=== PATIENT | male | born 1990 | race Caucasian/White ===

== ENCOUNTER 2021-04-16 14:53 | Emergency (ER) | payer OTHER, SELFPAY ==
[2021-04-16 15:04] VITALS: BP 132/77; PULSE 77; RESP 16; TEMP 36.9; O2SAT 99
--- NOTE | 2021-04-16 15:07 | ED.URI ---
HPI - URI/Sore Throat General Chief Complaint: Upper Respiratory Infection Stated Complaint: sore throat Time Seen by Provider: 04/16/21 15:30 Source: patient and RN notes reviewed Mode of arrival: ambulatory Limitations: no limitations History of Present Illness MD elicited complaint: sore throat Related Data Allergies Allergy/AdvReac Type Severity Reaction Status Date / Time No Known Allergies Allergy Mild Verified 03/16/10 14:28 Review of Systems Review of Systems: CONSTITUTIONAL: Denies malaise, chills, sweats, or fever. EYES: Denies visual changes, redness, or discharge. ENT: Denies rhinorrhea, congestion, sinus pain, otalgia. Reports sore throat. CARDIOVASCULAR: Denies chest pain, palpitations, or edema. RESPIRATORY: Denies cough or dyspnea. GASTROINTESTINAL: Denies abdominal pain, vomiting, diarrhea. Reports nausea SKIN: Denies rash or itching. MUSCULOSKELETAL: Denies myalgia. NEUROLOGIC: Reports headache. All systems reviewed & are unremarkable except as noted in HPI and below PMFSH Comments At time of signature, agree with nursing past medical, surgical, social and family history. There is no relevant family history pertinent to the presenting complaint Exam Narrative: GENERAL: Well-appearing, well-nourished, and in no acute distress. HEAD: Normocephalic EYES: PERRLA, conjunctivae clear ENT: Nares clear, no discharge. Mucous membranes moist. TM pearly mehta with sharp light reflex bilaterally; no tragal tenderness. Oropharynx erythematous without lesions. Tonsils enlarged copious exudate, no drooling, no hoarseness, no trismus, uvula midline. NECK: Supple. No lymphadenopathy CHEST: Clear to auscultation, breath sounds equal. No wheezing, rhonchi, rales, or stridor. No respiratory distress, speaks in full sentences. HEART: Regular rate and rhythm. No murmur heard. SKIN: Warm, dry, no rash. NEURO: Alert and oriented x3. PSYCH: Normal mood and affect Course Course Emergency Course: Patient is aware of diagnosis, understands and agrees to treatment plan. Anticipatory guidance given. Patient agrees to follow-up as directed and is aware of reasons to seek care at the emergency department. Portions of this record may have been created with voice recognition software Vital Signs Vital signs: Vital Signs Temperature 98.4 F 04/16/21 15:04 Pulse Rate 77 10/23/21 15:04 Respiratory Rate 16 04/16/21 15:04 Blood Pressure 132/77 04/16/21 15:04 Pulse Oximetry 99 04/16/21 15:04 Temperature 98.4 F 04/16/21 15:04 Pulse Rate 77 04/16/21 15:04 Respiratory Rate 16 04/16/21 15:04 Blood Pressure 132/77 04/16/21 15:04 Pulse Oximetry 99 04/16/21 15:04 Reviewed. MDM - URI/Sore Throat MDM Narrative Medical decision making narrative: Differential diagnosis considered: Jackson virus, strep pharyngitis, allergic rhinitis, upper respiratory tract infection, sinusitis, rhinosinusitis, nasopharyngitis. viral pharyngitis, otitis media, otitis externa, pneumonia, bronchitis, viral cough syndrome, viral syndrome, and influenza. Exam findings show no acute concerns or changes; patient is non-toxic appearing and is in no distress. Patient is appropriate for outpatient treatment and follow-up. Lab Data Attestation: I reviewed the patient's lab results. Critical Care Time Critical Care Time Critical Care Time: No Discharge Plan Discharge Clinical Impression: Acute tonsillitis Qualifiers: Pharyngitis/tonsillitis etiology: unspecified etiology Qualified Code(s): J03.90 - Acute tonsillitis, unspecified Patient Disposition: Home, Self-Care Condition: Stable Instructions: Antibiotic Form, Tonsillitis (ED) Additional Instructions: -Take the medication as prescribed. Throw away the toothbrush after 24hours of antibiotic. -Eat and drink things that are easy to swallow, like tea or soup, or popsicles to suck on. -Oral rinses such as: Salt water gargles and/or may use topical anesthetic (eg. Chloras
== END 2021-04-16 15:40 | disposition home or self-care (01) ==
PROVIDERS: Emergency Provider Nurse Practitioner
DX: J03.90 Acute tonsillitis, unspecified (principal)
CPT/HCPCS: 87081; 87880; 99213; G0463

== ENCOUNTER 2021-10-25 15:16 | Emergency (ER) | payer OTHER, SELFPAY ==
[2021-10-25] VITALS (9 sets, daily range): BP systolic 156–178; BP diastolic 75–102; PULSE 89–118; RESP 15–28; TEMP 36.2; O2SAT 99–100
--- NOTE | ~2021-10-25 | XR_ITS ---
EXAMINATION: XR chest 2V DATE: 10/25/2021 16:12 INDICATION: Chest pain. Near syncope. TECHNIQUE: Frontal and lateral views of the chest were obtained. COMPARISON: None. FINDINGS: There is no pneumonia, pleural effusion, or pneumothorax. The heart size is normal. IMPRESSION: 1. No acute cardiopulmonary disease. Reviewed, dictated and finalized at location B.
--- NOTE | 2021-10-25 15:16 | ECG_ITS ---
Measurements Intervals [place] Rate: 112 P: 59 KS: 132 QRS: 33 QRSD: 82 T: 17 QT: 308 QTc: 422 Interpretive Statements SINUS TACHYCARDIA BASELINE ARTIFACT- II, III ABNORMAL ECG Electronically Signed On 10-25-2021 15:33:40 CDT by Joseph Anderson D.O.
[2021-10-25 15:49] LABS: Basophils Absolute Auto 0.1 K/mm3 (0.0-0.1); Basophils Percent Auto 0.6 % (0.2-1.2); Eosinophils Percent Auto 0.1 % (0-4.4); Hematocrit 41.1 % (42.0-52.0); Hemoglobin 13.9 g/dL (14.0-18.0); Immature Granulocyte Absolute 0.04 K/mm3 (0.00-0.031); Immature Granulocyte Percent A 0.4 % (0-0.5); Lymphocytes Absolute Auto 0.83 K/mm3 (0.9-3.2); Lymphocytes Percent Auto 7.8 % (18.3-44.2); Mean Corpuscular HGB Conc 33.8 g/dl (32-36); Mean Corpuscular Hemoglobin 32.9 pg (26-34); Mean Corpuscular Volume 97.2 fl (80-100); Monocytes Absolute Auto 0.7 K/mm3 (0.1-0.6); Monocytes Percent Auto 6.6 % (2.6-8.5); Neutrophils Percent Auto 84.5 % (45.5-73.1); Platelet Count Result 318 k/mm3 (150-375); Red Blood Count 4.23 M/mm3 (4.6-6.20); Red Cell Distribution Width 12.6 % (11.5-14.5); White Blood Count 10.6 K/mm3 (4.5-10.0)
--- NOTE | 2021-10-25 15:49 | ED.CHESTPAIN ---
HPI - Chest Pain General Chief Complaint: Chest Pain Stated Complaint: chest pain Time Seen by Provider: 10/25/21 15:30 Source: patient History of Present Illness HPI narrative: Patient presents with concern for reaction to fentanyl. Patient reports he has a history of fentanyl abuse and had a relapse last night he took a dose of fentanyl IV last night was not doing well he also repeated his dose at 10:00 this morning was doing well until about 3:00 this afternoon he was shopping and then developed lightheadedness and felt like his heart was racing. He had these waves of dizziness feeling of being flushed and shakiness in his hands and legs. Symptoms were not improving so he came to the ER for further evaluation. Symptoms were also associated with shortness of breath has not reacted like this to fentanyl in the past but he got this batch of fentanyl from a different dealer. Related Data Allergies Allergy/AdvReac Type Severity Reaction Status Date / Time No Known Allergies Allergy Mild Verified 03/16/10 14:28 Review of Systems Review of Systems: CONSTITUTIONAL: Denies fever, chills, or sweats. EYES: Denies visual changes, redness, or discharge. ENT: Denies rhinorrhea, congestion, sore throat, or otalgia. CARDIOVASCULAR: Denies chest pain, palpitations, or edema. RESPIRATORY: Denies cough or dyspnea. GASTROINTESTINAL: Denies abdominal pain, nausea, vomiting, or diarrhea. GENITOURINARY: Denies dysuria or hematuria. SKIN: Denies rash or itching. MUSCULOSKELETAL: Denies back pain, joint pain, or myalgia. NEUROLOGIC: Denies headache, numbness, dizziness, or weakness. PSYCHIATRIC: Denies anxiety or depression. Course Reevaluation(s) Reevaluation #1: Patient reports feeling much improved results obtained reviewed with patient. Patient is comfortable outpatient plan. Date: 10/25/21 Time: 19:18 Vital Signs Vital signs: Vital Signs Temperature 36.2 C L 10/25/21 15:18 Pulse Rate 118 H 10/25/21 15:18 Respiratory Rate 24 H 10/25/21 15:18 Blood Pressure 178/95 H 10/25/21 15:18 Pulse Oximetry 100 10/25/21 15:18 Temperature 36.2 C L 10/25/21 15:18 Pulse Rate 92 10/25/21 19:22 Respiratory Rate 18 10/25/21 19:22 Blood Pressure 163/102 H 10/25/21 19:22 Pulse Oximetry 99 10/25/21 19:47 MDM - Chest Pain MDM Narrative Medical decision making narrative: H&P as above, vs initially with tachycardia and hypertension, pt looks clinically well, exam reassuring, labs clinically unremarkable to include a delta troponin, img without acute process, additional labs/img considered, symptomatic relief available as needed, on reevaluation pt continues to looks clinically well. Suspect reaction to illicit substance, dns PE, dissection, pneumothorax, ACS. plan to tx/monitor as op w/ pcm f/u findings/plan discussed with pt, pt agree/comfortable with plan, return precautions given Lab Data Result diagrams: 10/25/21 15:44 10/25/21 15:44 Labs: Lab Results 10/25/21 10/25/21 10/25/21 Range/Units 15:44 15:44 15:44 WBC 10.6 H (4.5-10.0) K/mm3 RBC 4.23 L (4.6-6.20) M/mm3 Hgb 13.9 L (14.0-18.0) g/dL Hct 41.1 L (42.0-52.0) % MCV 97.2 (80-100) fl MCH 32.9 (26-34) pg MCHC 33.8 (32-36) g/dl RDW 12.6 (11.5-14.5) % Plt Count 318 (150-375) k/mm3 MPV 9.0 (7.4-10.4) fl Immature Gran % (Auto) 0.4 (0-0.5) % Neut % (Auto) 84.5 H (45.5-73.1) % Lymph % (Auto) 7.8 L (18.3-44.2) % Mitchell % (Auto) 6.6 (2.6-8.5) % Eos % (Auto) 0.1 (0-4.4) % Baso % (Auto) 0.6 (0.2-1.2) % Lymph # (Auto) 0.83 L (0.9-3.2) K/mm3 Mitchell # (Auto) 0.7 H (0.1-0.6) K/mm3 Eos # (Auto) 0.0 (0-0.3) K/mm3 Baso # (Auto) 0.1 (0.0-0.1) K/mm3 Abs Immat Gran (auto) 0.04 H (0.00-0.031) K/mm3 Absolute Neuts (auto) 9.0 H (1.3-6.7) K/mm3 Absolute Nucleated RBC 0.0 (0.0-0.012) K/mm3 Nucleated RBC % 0.0 (0.0-0.2) % PT 13.7 (11.1-14.7) Seconds
[2021-10-25 15:59] LABS: Alanine Aminotransferase 179 U/L (4-50); Albumin Level 4.8 g/dL (3.5-5.1); Alkaline Phosphatase 195 U/L (38-126); Anion Gap 12 mmol/L (8-16); Aspartate Amino Transferase 191 U/L (17-59); Bilirubin,Total 0.5 mg/dL (0.2-1.3); Blood Urea Nitrogen 6 mg/dL (9-20); Carbon Dioxide 27 mmol/L (22-30); Chloride 96 mmol/L (98-107); Estimated CRCL calculation 132 ml/min; Estimated Glomerular Filt Rate > 60; Glucose 150 mg/dL (65-110); INR 1.1; Lipase 129 U/L (23-300); Potassium 3.8 mmol/L (3.4-5.0); Prothrombin Time 13.7 Seconds (11.1-14.7); Sodium 135 mmol/L (137-145)
[2021-10-25 16:01] LABS: Partial Thromboplastin Time 30.7 SECONDS (22.3-36.8)
[2021-10-25 16:02] LABS: D Dimer 0.37 ug/mL (<0.48)
[2021-10-25 16:11] LABS: Troponin I < 0.012 ng/mL (0.000-0.034)
[2021-10-25 17:08] LABS: Appearance Urine Clear (Clear); Bilirubin Urine Negative (Negative); Blood Urine Negative (Negative); Color Urine Yellow (Yellow); Glucose Urine UA Negative (Negative); Ketones Urine Negative (Negative); Leukocyte Esterase Ur Negative LEU/UL (Negative); Nitrate Urine Negative (Negative); Protein Urine Negative (Negative); Specific Grav Ur 1.015 (1.001-1.035); pH Urine 7.5 (5.0-9.0)
[2021-10-25 17:10] LABS: Add Urine Microscopic? NO
[2021-10-25 17:13] LABS: Amphetamine Screen Urine Negative (Negative); Barbiturate Screen Urine Negative (Negative); Benzodiazepines Screen Urine Negative (Negative); Cannabinoid Screen Urine Negative (Negative); Cocaine Screen Urine Negative (Negative); Methadone Screen Urine Negative (Negative); Opiate Screen Urine Negative (Negative); Phencyclidine Screen Urine Negative (Negative)
--- NOTE | 2021-10-25 19:02 | PC.NURSE ---
Assuming care of pt.
[2021-10-25 19:09] LABS: Troponin I < 0.012 ng/mL (0.000-0.034)
== END 2021-10-25 19:33 | disposition home or self-care (01) ==
PROVIDERS: Emergency Provider Emergency Medicine
DX: R07.89 Other chest pain (principal); F11.90 Opioid use, unspecified, uncomplicated; R00.0 Tachycardia, unspecified; R03.0 Elevated blood-pressure reading, without diagnosis of hypertension
CPT/HCPCS: 36415; 71046; 80053; 80307; 81003; 83690; 84484; 85025; 85380; 85610; 85730; 93005; 99284

== ENCOUNTER 2022-05-08 13:10 | Observation (INO) | payer OTHER, SELFPAY ==
--- NOTE | ~2022-05-08 | CT_ITS ---
EXAMINATION: CT abdomen pelvis w con DATE: 05/08/2022 15:57 INDICATION: Generalized abdominal pain radiating to the back. Nausea and vomiting. TECHNIQUE: Computed tomography (CT) of the abdomen and pelvis was performed with 100 mL Omnipaque-350 intravenous contrast. Automated exposure control and iterative reconstruction technique were employe d. The dose-length product was 754.52 mGy-cm. COMPARISON: None FINDINGS: Lung bases are clear. Heart size is normal. No pericardial or pleural effusion. Small sliding-type hi atal hernia. Diffuse hepatic steatosis. Gallbladder, spleen, pancreas, bilateral adrenal glands and k idneys are normal. Focal retroperitoneal inflammatory stranding surrounding the head and uncinate pro cess of the pancreas and second portion of duodenum consistent with acute interstitial pancreatitis. No hypoenhancing region of pancreas to suggest necrosis or loculated peripancreatic fluid collections to suggest abscess or walled off necrosis or pseudocyst formation. Spleen, bilateral adrenal glands and kidneys are normal. Normal retrocecal appendix. No bowel obstruction. Mild fatty infiltration of the distal ileum and portions of the decompressed descending and sigmoid colon without associated inf lammatory stranding which could be related to body habitus although the former could also be seen sec ondary to chronic inflammation such as in the setting of Crohn's disease. Bladder is normal. No free intraperitoneal gas or fluid. No pathologically enlarged abdominal or pelvic lymphadenopathy. Transit ional thoracolumbar and lumbosacral segments with hypoplastic riblet at the left side of L1, right-si ded sacralization of L6 segment with 4 additional intervening nonrib-bearing lumbar segments. IMPRESSION: 1. Acute interstitial pattern greatest at the head and uncinate process of the pancreas. 2. Fatty infiltration of the terminal ileum which could be related to either body habitus or sequela of chronic inflammation such as in the setting of Crohn's disease. No inflammatory change to suggest an acute enteritis. Reviewed, dictated and finalized at location B. GATIONIST IMPRESSION: 1. Acute interstitial pattern greatest at the head and uncinate process of the pancreas. 2. Fatty infiltration of the terminal ileum which could be related to either scott dy habitus or sequela of chronic inflammation such as in the setting of Crohn's disease. No inflammatory change to suggest an acute enteritis.
[2022-05-08 13:17] VITALS: BP 169/96; PULSE 100; RESP 18; TEMP 36.6; O2SAT 98
[2022-05-08 13:28] LABS: Basophils Percent Auto 0.4 % (0.2-1.2); Eosinophils Percent Auto 0.1 % (0-4.4); Hematocrit 46.3 % (42.0-52.0); Hemoglobin 15.7 g/dL (14.0-18.0); Immature Granulocyte Absolute 0.03 K/mm3 (0.00-0.031); Immature Granulocyte Percent A 0.3 % (0-0.5); Lymphocytes Percent Auto 6.5 % (18.3-44.2); Mean Corpuscular HGB Conc 33.9 g/dl (32-36); Mean Corpuscular Hemoglobin 33.8 pg (26-34); Mean Corpuscular Volume 99.8 fl (80-100); Mean Platelet Volume 8.9 fl (7.4-10.4); Monocytes Absolute Auto 0.7 K/mm3 (0.1-0.6); Monocytes Percent Auto 7.4 % (2.6-8.5); Neutrophils Absolute Auto 7.9 K/mm3 (1.3-6.7); Neutrophils Percent Auto 85.3 % (45.5-73.1); Platelet Count Result 289 k/mm3 (150-375); Red Blood Count 4.64 M/mm3 (4.6-6.20); Red Cell Distribution Width 13.2 % (11.5-14.5); White Blood Count 9.3 K/mm3 (4.5-10.0)
[2022-05-08 13:44] LABS: Alanine Aminotransferase 356 U/L (6-50); Albumin Level 4.7 g/dL (3.5-5.1); Alkaline Phosphatase 199 U/L (38-126); Anion Gap 14 mmol/L (8-16); Aspartate Amino Transferase 248 U/L (17-59); Bilirubin,Total 1.5 mg/dL (0.2-1.3); Blood Urea Nitrogen 6 mg/dL (9-20); Calcium 9.5 mg/dL (8.4-10.2); Carbon Dioxide 29 mmol/L (22-30); Chloride 95 mmol/L (98-107); Estimated CRCL calculation 136 ml/min; Estimated Glomerular Filt Rate > 60; Glucose 122 mg/dL (65-110); Sodium 138 mmol/L (137-145)
[2022-05-08 14:22] LABS: Lipase 2094 U/L (23-300)
--- NOTE | 2022-05-08 14:57 | ED.ABDPAIN ---
HPI - Abdominal Pain General Chief Complaint: Abdominal Pain Stated Complaint: back pain, bodyaches Time Seen by Provider: 05/08/22 14:52 Source: RN notes reviewed History of Present Illness HPI narrative: Patient presents emergency room from home for abdominal pain. Patient states symptoms began this morning upon waking pain is located [place] upper abdomen radiates around to the back described as aching in nature. Patient states pain is associated nausea and vomiting. States that he did eat tacos last night. States he also has a history of alcohol use drinking approximately 1 pint a day of hard alcohol he denies any fevers or chills chest pain shortness of breath diarrhea or any other symptoms states he has not been able to keep anything down today states he did try taking Tylenol earlier for the pain Related Data Allergies Allergy/AdvReac Type Severity Reaction Status Date / Time No Known Allergies Allergy Mild Verified 05/08/22 17:23 Review of Systems Review of Systems: Gen.: Denies fevers or chills ENT: Denies congestion Respiratory: Denies shortness of breath or cough CV: Denies chest pain or palpitations GI: See HPI Musculoskeletal: Denies back pain or muscle pain Neuro: Denies numbness, tingling, weakness or focal weakness Skin: Denies rash Except as documented, all other systems reviewed and negative [facility] Past Medical History Medical History (Updated 05/08/22 @ 17:41 by Dale Rogel DO) Patient denies significant medical history Social History Social History (Updated 05/08/22 @ 14:59 by Dale Rogel DO) Smoking status: Never smoker Alcohol intake: current Alcohol use details: Patient states he drinks a pint a day Exam Narrative: APPEARANCE: No acute distress, nontoxic, resting in bed HEENT: Normocephalic, atraumatic, OMM RESPIRATORY: No respiratory distress, clear to auscultation bilaterally with no rhonchi wheezing or rales CARDIOVASCULAR: RRR s murmur ABDOMINAL: Soft nondistended tender palpation epigastric and right upper quadrant left upper quadrant no tenderness right lower quadrant left lower quadrant no rebound or guarding MUSCULOSKELETAl: Moves all extremities. No clubbing, cyanosis or edema. NEURO: Awake and alert. Following commands, speech normal, no focal deficits SKIN:: Warm, dry. Normal Color PSYCHIATRIC: Normal affect/mood Course Course Emergency Course: Discussed with Dr Lora presentation work-up agrees with consult Discussed with CLAUDIA Castellanos for Dr. Fernandez agrees with admission Discussed with patient and family results of workup and diagnosis. Discussed need for admission. Patient and family understand and agree to current treatment plan Vital Signs Vital signs: Vital Signs Temperature 97.8 F 05/08/22 13:17 Pulse Rate 100 05/08/22 13:17 Respiratory Rate 18 05/08/22 13:17 Blood Pressure 169/96 H 05/08/22 13:17 Pulse Oximetry 98 05/08/22 13:17 Oxygen Delivery Room Air 05/08/22 13:17 Temperature 97.8 F 05/08/22 13:17 Pulse Rate 89 05/08/22 17:20 Respiratory Rate 18 05/08/22 17:20 Blood Pressure 145/93 H 05/08/22 17:20 Pulse Oximetry 98 05/08/22 17:20 Oxygen Delivery Room Air 05/08/22 13:17 MDM - Abdominal Pain Lab Data Result diagrams: 05/08/22 13:23 05/08/22 13:23 Labs: Lab Results 05/08/22 05/08/22 05/08/22 Range/Units 13:23 13:23 16:07 WBC 9.3 (4.5-10.0) K/mm3 RBC 4.64 (4.6-6.20) M/mm3 Hgb 15.7 (14.0-18.0) g/dL Hct 46.3 (42.0-52.0) % MCV 99.8 (80-100) fl MCH 33.8 (26-34) pg MCHC 33.9 (32-36) g/dl RDW 13.2 (11.5-14.5) % Plt Count 289 (150-375) k/mm3 MPV 8.9 (7.4-10.4) fl Immature Gran % (Auto) 0.3 (0-0.5) % Neut % (Auto) 85.3 H (45.5-73.1) % Lymph % (Auto) 6.5 L (18.3-44.2) % [place] % (Auto) 7.4 (2.6-8.5) % Eos % (Auto) 0.1 (0-4.4) % Baso % (Auto) 0.4 (0.2-1.2) % Lymph # (Auto) 0.60 L
[2022-05-08] MEDS: SODIUM CHLORIDE 0.9% IV 1,000 ML 999 ML IV CONT ×3 (15:41→16:23)
[2022-05-08] MEDS: ONDANSETRON INJ 4 MG/2 ML VIAL IV PUSH (15:42)
[2022-05-08] MEDS: MORPHINE SULFATE (*CRX) 4 MG/ML INJ IV PUSH (15:43)
[2022-05-08 16:41] LABS: Ethanol < 10 mg/dL (<10)
[2022-05-08 17:20] VITALS: BP 145/93; PULSE 89; RESP 18; O2SAT 98
[2022-05-08 17:37] LABS: INR 1.1; Prothrombin Time 13.7 Seconds (11.1-14.7)
--- NOTE | 2022-05-08 17:45 | PM.IMHP ---
H&P: HPI History of Present Illness Date/Time: 05/08/22 17:45 Chief Complaint: Abdominal pain. Narrative: This is a very pleasant 32-year-old male who presented to the emergency department from home for evaluation of abdominal pain. He awoke this morning with pain between his shoulder blades which he initially attributed to his sleeping funny on his mattress. Once he got up and about he started to develop a severe cramping discomfort in epigastric region associated with belching, nausea, and several episodes of nonbloody emesis. He celebrated his birthday over the weekend and imbibed more than usual and he thought he was likely hung over though unfortunately his pain has continued to get worse which led him to come in today for evaluation. His labs today were significant for transaminitis and elevated lipase. Subsequent CT of the abdomen pelvis showed acute interstitial pancreatitis and he is being admitted in this setting. At the time my evaluation he is feeling a bit better at least with regards to his nausea after receiving Zofran. Morphine did improve his pain somewhat however it is starting to come back. He has never had similar symptoms in the past. With further questioning he does admit that he drinks heavily, usually drinking between 100 and 300 ml of vodka a day. On the weekends he can drink up to a 5th of vodka. Review of Systems Review of Systems: Twelve systems were reviewed. No fever, chills, or sweats. No anxiety or agitation. No hallucinations. He has no history of alcohol withdrawal signs or symptoms. No chest pain or shortness of breath. No cold or flu symptoms. He has noticed that his urine output has been less the last day and that his urine is darker than usual. Except as documented, all other systems were reviewed and are negative. [facility] Past Medical History Medical History Alcohol abuse Surgical History Surgical History No history of previous surgery Family History Family History (Updated 05/08/22 @ 23:03 by Jasmin Rush PA-C) Other Alcoholism Social History Social History (Updated 05/08/22 @ 23:04 by Jasmin Rush PA-C) Social History: Surrogate medical decision maker: Jerry and Stacey Mondragon, parents. Code status: Full code. Smoking status: Current some day smoker Additional smoking assessment comments: Social smoker, cigarettes and date. Alcohol intake: current Alcohol use details: Patient states he drinks a pint a day, sometimes a 5th of vodka on the weekends. Substance use: former Substance use type: opiates Lack of Transportation: No Lack of Food: Never True Current Housing: I Have Housing Concerned About Future Housing: YES Difficulty Paying Gas/Electric Bills: No Difficulty Paying for Meds: No Currently Unemployed: No Education: High School Diploma/GED Difficulty w/ Childcare or Family Care: No Additional living arrangements comments: Currently living with parents in [place]. 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 Spiritual care concerns: No Meds Home Medications and Allergies Home Medications Medication Instructions Recorded Confirmed Type No Home Medications 05/08/22 05/08/22 History Allergies Allergy/AdvReac Type Severity Reaction Status Date / Time No Known Allergies Allergy Mild Verified 05/08/22 17:23 Vital Signs Vital Signs - 24 hr 05/08/22 13:17 05/08/22 17:20 05/08/22 20:13 Temperature 97.8 F Pulse Rate 100 89 94 Respiratory Rate 18 18 15 Blood Pressure 169/96 H 145/93 H 150/96 H Pulse Oximetry 98 98 98 Oxygen Delivery Room Air 05/08/22 21:00 05/08/22 21:26 Temperature 98.5 F Pulse Rate 94 86 Respiratory Rate 16 16 Blood Pressure 155/95 H Pulse Oximetry 89 L 98 Oxygen Delivery Room Air Exam Const: Other: Well-developed, nontoxic-appearing male sitting up in bed in no distress. Weight:
[2022-05-08 17:53] LABS: Magnesium 2.1 mg/dL (1.6-2.3)
[2022-05-08 18:10] LABS: Appearance Urine Clear (Clear); Bilirubin Urine 1+ (Negative); Blood Urine Negative (Negative); Color Urine Amber (Yellow); Glucose Urine UA Negative (Negative); Ketones Urine 1+ mg/dL (Negative); Leukocyte Esterase Ur Negative LEU/UL (Negative); Nitrate Urine Negative (Negative); Protein Urine 1+ mg/dL (Negative); Specific Grav Ur 1.015 (1.001-1.035); pH Urine 8.5 (5.0-9.0)
[2022-05-08 18:21] LABS: Mucus Urine Few /lpf; RBC Urine 0-2 /hpf (0-2); WBC Urine 0-3 /hpf
[2022-05-08 18:22] LABS: Add Urine Microscopic? YES
[2022-05-08] MEDS: THIAMINE HCL 200 MG/2 ML VIAL 100 MG IV PUSH (18:48)
[2022-05-08] MEDS: SODIUM CHLORIDE 0.9% IV 1,000 ML 125 ML IV CONT (18:54)
[2022-05-08 19:01] LABS: Influenza A QL RT-PCR Negative (Negative); Influenza B QL RT-PCR Negative (Negative); RSV RNA, RT-PCR Negative (Negative); SARS-CoV-2 RNA PCR Negative
[2022-05-08 20:13] VITALS: BP 150/96; PULSE 94; RESP 15; O2SAT 98
--- NOTE | 2022-05-08 20:34 | ADMGEN ---
This patient, Jerrell Mondragon, was admitted to Medical Room 346-01. Patient/family oriented to hospital policies and general routines including ID bracelet, bed and alarms, visiting hours, pain management, procedures, bathroom and other care routines, personal items, smoking policy, room service/diet, and visiting hours. Information on how to activate the Rapid Response Team has been discussed. Patient/Family are encouraged to report perceived risks to care and to ask questions if they do not understand what they are told or what they should do.
[2022-05-08 20:56] VITALS: BMI 32.7
[2022-05-08 21:00] VITALS: PULSE 94; RESP 16; O2SAT 89
[2022-05-08 21:26] VITALS: BP 155/95; PULSE 86; RESP 16; TEMP 36.9; O2SAT 98
[2022-05-08 21:39] VITALS: BMI 32.5
--- NOTE | 2022-05-08 23:35 | P.PNCROSS_ITS ---
Event Note Event Note Event Note: 05/08/2022 23:35 I received a call from the patient's nurse who informed me that the patient intended on leaving against medical advice as he had to get up early in the morning to go to work and he was afraid that he was going to lose his job. He is well aware of the potential for his pancreatitis to worsen and become life- threatening and that alcohol withdrawal symptoms, seizures, or even delirium tremens are a possibility given his alcohol abuse. Despite this he does not sustain hospital and refused further care. His documented vital signs at the time of his departure from the floor were stable and his last CIWA score was 0 which is reassuring. He was alert and oriented x4 and there was no evidence to suggest that he had altered decision making capacity. He was instructed that he could return to the ED at any time to resume care and he was told to seek follow-up as soon as possible.
== END 2022-05-08 23:38 | disposition left against medical advice (07) ==
LOC: ANHED 17:41 → ANH3MED 20:08
PROVIDERS: Admitting Provider Family Medicine; Emergency Provider Emergency Medicine; Visit Provider Family Medicine
DX: K85.90 Acute pancreatitis without necrosis or infection, unspecified (principal); R74.01 Elevation of levels of liver transaminase levels; F10.10 Alcohol abuse, uncomplicated; Y90.0 Blood alcohol level of less than 20 mg/100 ml; Z20.822 Contact with and (suspected) exposure to COVID-19; F17.210 Nicotine dependence, cigarettes, uncomplicated; F11.90 Opioid use, unspecified, uncomplicated; Z53.29 Procedure and treatment not carried out because of patient's decision for other reasons
CPT/HCPCS: 36415; 74177; 80053; 80307; 81001; 83690; 83735; 85025; 85610; 85730; 87637; 96361; 96374; 96375; 99285; G0378; G0379; J2270; J2405; J3411; J7030; Q9967

== ENCOUNTER 2024-03-30 15:31 | Inpatient (IN) | payer SELFPAY ==
[2024-03-30] VITALS (19 sets, daily range): BP systolic 132–182; BP diastolic 71–103; PULSE 88–117; RESP 18–36; TEMP 36.2–36.8; O2SAT 90–96
--- NOTE | ~2024-03-30 | XR_ITS ---
EXAMINATION: XR chest 1V portable Exam Date/Time: 03/30/2024 16:00 CDT HISTORY: overdose Comparison: 10/25/2021. RESULT: Lines, tubes, and devices: None. Lungs and pleura: Segmental airspace opacity in the peripheral right lung base. Mild right costophre michelle angle blunting. Cardiomediastinal silhouette: Stable. Other: No acute osseous or upper abdominal finding. IMPRESSION: Segmental right basilar atelectasis/consolidation. Aspiration could also be considered in the differe ntial. Possible small right pleural effusion. Reviewed, dictated and finalized at location K. IMPRESSION: Segmental right basilar atelectasis/consolidation. Aspiration could also be con sidered in the differential. Possible small right pleural effusion.
[2024-03-30] MEDS: ALBUTEROL SULFATE NEB 2.5 MG/3 ML INH 5 MG INHALATION (15:52)
--- NOTE | 2024-03-30 16:24 | ED.GENADULT ---
HPI - General Adult General Chief complaint: Overdose Stated complaint: overdose History of Present Illness HPI narrative: 33-year-old male present to the emergency department for evaluation after an accidental overdose. Patient took 2 pills that apparently contained fentanyl and patient became unresponsive. Patient's girlfriend did treat him with Narcan and patient became more agitated and combative. Patient did have excessive nausea and vomiting. Patient was combative in the ambulance and did require Haldol. Upon arrival emergency department patient is responsive but somnolent. Patient had been on 15 L of oxygen by nasal cannula and did not tolerate room air. Patient was placed on 2 L of oxygen via nasal cannula. Related Data Home Medications Medication Instructions Recorded Confirmed No Home Medications 05/08/22 05/08/22 Allergies Allergy/AdvReac Type Severity Reaction Status Date / Time No Known Allergies Allergy Mild Verified 05/08/22 17:23 Review of Systems Review of Systems: All systems reviewed & are unremarkable except as noted in HPI and below PMFSH Past Medical History Medical History Alcohol abuse Surgical History Surgical History No history of previous surgery Family History Family History (Updated 05/08/22 @ 23:03 by Jasmin Rush PA-C) Other Alcoholism Social History Social History (Updated 05/08/22 @ 23:04 by Jasmin Rush PA-C) Social History: Surrogate medical decision maker: Jerry and Stacey Mondragon, parents. Code status: Full code. Smoking status: Current some day smoker Additional smoking assessment comments: Social smoker, cigarettes and date. Alcohol intake: current Alcohol use details: Patient states he drinks a pint a day, sometimes a 5th of vodka on the weekends. Substance use: former Substance use type: IV drugs and unknown Lack of Transportation: No Lack of Food: Never True Current Housing: I Have Housing Concerned About Future Housing: YES Difficulty Paying Gas/Electric Bills: No Difficulty Paying for Meds: No Currently Unemployed: No Education: High School Diploma/GED Difficulty w/ Childcare or Family Care: No Additional living arrangements comments: Currently living with parents in [place]. 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 Spiritual care concerns: No Exam Narrative: APPEARANCE: Well appearing, no pain, no distress, well-nourished. HEAD: normocephalic, atraumatic. EYES: PERRLA/EOMI, conjunctivae clear. NOSE: Normal no drainage EARS:TMS clear with good light reflex. THROAT: Pharynx clear, no exudate. NECK: Supple. No adenopathy, no masses. RESPIRATORY: Airway patent, respirations nonlabored. Clear to auscultation bilaterally, no rales, rhonchi, wheezing. CARDIOVASCULAR: Regular rate and rhythm without murmurs rubs or gallops. ABDOMINAL: Soft, nontender, nondistended, normal bowel sounds MUSCULOSKELETAL: Moves all extremities. Strength/ROM intact, No edema, No calf tenderness. NEURO: Alert. Cranial nerves II through XII intact. Grossly intact SKIN: Warm, dry. Normal Color Course Course Emergency Course: Patient was agreeable to admission for possible aspiration. Vital Signs Vital signs: Vital Signs Pulse Rate 109 H 03/30/24 15:33 Respiratory Rate 33 H 03/30/24 15:33 Blood Pressure 182/101 H 03/30/24 15:33 Pulse Oximetry 90 03/30/24 15:33 Oxygen Delivery Room Air 03/30/24 15:33 Temperature 97.1 F L 03/30/24 18:42 Pulse Rate 103 H 03/30/24 18:42 Respiratory Rate 20 03/30/24 18:42 Blood Pressure 157/71 H 03/30/24 18:42 Pulse Oximetry 96 03/30/24 18:42 Oxygen Delivery Nasal Cannula 03/30/24 15:55 Oxygen Flow Rate 2 03/30/24 15:55 Fraction of Inspired Oxygen 28 03/30/24 15:54 Medical Decision Making [facility] Narrative Medical decision making narrative: 33-year-
[2024-03-30 17:09] LABS: Basophils Absolute Auto 0.1 K/mm3 (0.0-0.1); Basophils Percent Auto 0.8 % (0.2-1.2); Hematocrit 42.9 % (42.0-52.0); Hemoglobin 14.8 g/dL (14.0-18.0); Immature Granulocyte Absolute 0.01 K/mm3 (0.00-0.031); Immature Granulocyte Percent A 0.2 % (0-0.5); Lymphocytes Absolute Auto 0.49 K/mm3 (0.9-3.2); Lymphocytes Percent Auto 8.1 % (18.3-44.2); Mean Corpuscular HGB Conc 34.5 g/dl (32-36); Mean Corpuscular Hemoglobin 35.2 pg (26-34); Mean Corpuscular Volume 102.1 fl (80-100); Mean Platelet Volume 9.6 fl (7.4-10.4); Monocytes Absolute Auto 0.7 K/mm3 (0.1-0.6); Neutrophils Absolute Auto 4.9 K/mm3 (1.3-6.7); Neutrophils Percent Auto 79.9 % (45.5-73.1); Platelet Count Result 141 k/mm3 (150-375); Red Cell Distribution Width 13.1 % (11.5-14.5); White Blood Count 6.1 K/mm3 (4.5-10.0)
[2024-03-30 17:20] LABS: Alanine Aminotransferase 385 U/L (6-50); Albumin Level 4.8 g/dL (3.5-5.1); Alkaline Phosphatase 175 U/L (38-126); Anion Gap 12 mmol/L (4-12); Aspartate Amino Transferase 496 U/L (17-59); Bilirubin,Total 1.4 mg/dL (0.2-1.3); Blood Urea Nitrogen 9 mg/dL (9-20); Calcium 8.9 mg/dL (8.4-10.2); Carbon Dioxide 28 mmol/L (22-30); Chloride 99 mmol/L (98-107); Estimated Glomerular Filt Rate > 60; Glucose 137 mg/dL (65-110); Potassium 3.8 mmol/L (3.4-5.0); Sodium 139 mmol/L (137-145)
[2024-03-30 17:25] LABS: Add Urine Microscopic? YES; Appearance Urine Cloudy (Clear); Bacteria Urine None Seen /hpf; Bilirubin Urine Negative (Negative); Blood Urine Negative (Negative); Color Urine Yellow (Yellow); Glucose Urine UA Negative (Negative); Ketones Urine Trace mg/dL (Negative); Leukocyte Esterase Ur Negative LEU/UL (Negative); Nitrate Urine Negative (Negative); Non Pathogenic Casts 0-2; Protein Urine 1+ mg/dL (Negative); RBC Urine 0-2 /hpf (0-2); Specific Grav Ur 1.013 (1.001-1.035); Squamous Epithelial Cell Urine None Seen /hpf (Few); WBC Urine 0-5 /hpf (0-3)
[2024-03-30 17:37] LABS: Amphetamine Screen Urine Negative (Negative); Barbiturate Screen Urine Negative (Negative); Benzodiazepines Screen Urine Negative (Negative); Cannabinoid Screen Urine Positive (Negative); Cocaine Screen Urine Negative (Negative); Methadone Screen Urine Negative (Negative); Opiate Screen Urine Positive (Negative); Phencyclidine Screen Urine Negative (Negative)
[2024-03-30] MEDS: AZITHROMYCIN 500 MG/NS 250 ML 500 MG/250 ML BAG 250 MG IVPB (18:14)
[2024-03-30] MEDS: SODIUM CHLORIDE 0.9% IV 1,000 ML 125 ML IV CONT (18:37)
--- NOTE | 2024-03-30 18:40 | PC.NURSE ---
RN is unable to obtain admission and medication reconciliation due to patient's mental status. Patient is falling asleep during sentences. Girlfriend was bedside, but left while RN and REPAIR MANAGER were assessing patient.
[2024-03-30] MEDS: metroNIDAZOLE 500 MG/ISO 100ML 500 MG/100 ML BAG 100 MG IVPB (18:41)
--- NOTE | 2024-03-30 19:30 | PM.IMHP ---
H&P: HPI History of Present Illness Date/Time: 03/30/24 19:30 Chief Complaint: Overdose. Narrative: This is a pleasant 33-year-old male with history of polysubstance abuse including abuse of fentanyl and alcohol who presented to the emergency department via EMS for evaluation after an unintentional overdose. The patient provides the following history. He snorted fentanyl not long prior to arrival and according to a friend he was ?going in and out of it? and became less and less responsive. She administered 4 mg Narcan intranasally and he came too. She reports that he began vomiting almost immediately while still supine. EMS was summoned and on their arrival he was alert and oriented x4. Enroute to the hospital he was given haloperidol 5 mg and ondansetron 4 mg for the vomiting with some improvement. At the time of my evaluation he complains of feeling rotten with body aches, mild shortness of breath, anxiety, and tremors. He last had a drink of alcohol at about 10:00 this morning. He can usually go about 8 to 10 hours between having drinks of alcohol before he has signs and symptoms of alcohol withdrawal. He has never had an alcohol withdrawal seizure but admits he has never stopped drinking for very long. Regarding his substance abuse, he has had periods of sobriety and was on Suboxone previously. He denies hallucinations, chest pain, cough, abdominal pain, diarrhea, and dysuria. In the ED: He was afebrile on arrival to the emergency department with stable blood pressures. He has been tachycardic and tachypneic since arrival to the hospital. Labs are significant for a WBC count of 6.1, platelet 141, BUN 9, creatinine 0.60, total bili 1.4, AST 496, ALT 385, alkaline phosphatase 175. Urine drug screen was positive for opioids and cannabinoids. Chest x-ray shows segmental right basilar atelectasis/consolidation, possible aspiration. He was given a dose of azithromycin, ceftriaxone, and metronidazole and is being admitted in this setting for close monitoring and IV antibiotics for possible aspiration pneumonia. Review of Systems Review of Systems: 12 systems were reviewed and are negative except for as per HPI. [facility] Past Medical History Medical History (Updated 03/30/24 @ 21:35 by Jasmin Rush PA-C) Alcohol abuse Polysubstance abuse Urine drug screen positive for opiates and cannabinoids. Surgical History Surgical History No history of previous surgery Family History Family History Father Heart attack Other Alcoholism Social History Social History (Updated 03/30/24 @ 21:33 by Jasmin Rush PA-C) Social History: Surrogate medical decision maker: Jerry and Stacey Mondragon, parents. Code status: Full code. Smoking packs per day: 1 Smoking cigarettes per day: 20.0 Smoking status: Current every day smoker Tobacco type: cigarettes Additional smoking assessment comments: Social smoker, cigarettes and vape. Alcohol intake: current Alcohol use details: 5th of Tequila a day. Substance use: current Substance use type: marijuana, opiates and other Other substance usage details: 1 to 2 g fentanyl daily, marijuana Do You Feel Safe in your Home?: Yes Lack of Transportation: No Lack of Food: Never True Current Housing: I Have Housing Concerned About Future Housing: No Difficulty Paying Gas/Electric Bills: No Difficulty Paying for Meds: No Currently Unemployed: No Education: High School Diploma/GED Difficulty w/ Childcare or Family Care: No Additional living arrangements comments: Lives with a friend in [place]. Spiritual care concerns: No Meds Home Medications and Allergies Home Medications Medication Instructions Recorded Confirmed Type No Home Medications 05/08/22 03/30/24 History Allergies Allergy/AdvReac Type Severity Reaction Status Date / Mike
--- NOTE | 2024-03-30 19:32 | ECG_ITS ---
Test Date: 2024-03-30 19:51:42 Measurements Intervals [place] Rate: 94 P: 47 SC: 132 QRS: 12 QRSD: 90 T: 3 QT: 394 QTc: 495 Interpretive Statements SINUS RHYTHM No previous ECG available for comparison Electronically Signed On 03-30-2024 21:13:43 CDT by Liliana Clark M.D.
[2024-03-30] MEDS: LORazepam (*CRX) 1 MG TABLET 2 MG PO (20:13)
[2024-03-30] MEDS: ALBUTEROL SULFATE NEB 2.5 MG/3 ML INH INHALATION (20:20)
[2024-03-30] MEDS: LORazepam INJ (*CRX) 2 MG/ML VIAL 1 MG IV PUSH (21:37)
[2024-03-30] MEDS: LORazepam INJ (*CRX) 2 MG/ML VIAL IV PUSH (23:12)
[2024-03-31] VITALS (21 sets, daily range): BP systolic 139–150; BP diastolic 84–91; PULSE 92–130; RESP 16–20; TEMP 36.3–36.9; O2SAT 95–99
[2024-03-31] MEDS: chlordiazePOXIDE (*CRX) 25 MG CAPSULE PO ×4 (00:03→18:35)
[2024-03-31] MEDS: LORazepam (*CRX) 1 MG TABLET 2 MG PO ×5 (02:33→21:13)
[2024-03-31] MEDS: ALBUTEROL SULFATE NEB 2.5 MG/3 ML INH INHALATION ×3 (02:35→13:47)
[2024-03-31] MEDS: LORazepam INJ (*CRX) 2 MG/ML VIAL IV PUSH ×2 (04:19→09:08)
[2024-03-31] MEDS: SODIUM CHLORIDE 0.9% IV 1,000 ML 125 ML IV CONT ×2 (05:14→16:19)
[2024-03-31 06:10] LABS: Hematocrit 42.6 % (42.0-52.0); Hemoglobin 14.5 g/dL (14.0-18.0); Immature Platelet Fraction Pct 4.7 % (0.9-11.2); Mean Corpuscular Hemoglobin 34.9 pg (26-34); Mean Corpuscular Volume 102.7 fl (80-100); Platelet Count Result 145 k/mm3 (150-375); Red Blood Count 4.15 M/mm3 (4.6-6.20); Red Cell Distribution Width 12.8 % (11.5-14.5); White Blood Count 6.4 K/mm3 (4.5-10.0)
[2024-03-31 06:28] LABS: Alanine Aminotransferase 332 U/L (6-50); Albumin Level 3.8 g/dL (3.5-5.1); Alkaline Phosphatase 159 U/L (38-126); Anion Gap 13 mmol/L (4-12); Aspartate Amino Transferase 350 U/L (17-59); Blood Urea Nitrogen 10 mg/dL (9-20); Calcium 8.7 mg/dL (8.4-10.2); Carbon Dioxide 25 mmol/L (22-30); Chloride 99 mmol/L (98-107); Estimated Glomerular Filt Rate > 60; Glucose 104 mg/dL (65-110); Magnesium 1.9 mg/dL (1.6-2.3); Potassium 3.7 mmol/L (3.4-5.0); Sodium 137 mmol/L (137-145)
[2024-03-31] MEDS: FOLIC ACID 1 MG TABLET PO (11:52)
[2024-03-31] MEDS: THIAMINE HCL 100 MG TABLET PO (11:52)
--- NOTE | 2024-03-31 14:21 | PM.IMPN ---
Progress Note: A&P Assessment and Plan (1) Accidental fentanyl overdose: Code(s): T40.411A - Poisoning by fentanyl or fentanyl analogs, accidental (unintentional), initial encounter Status: Acute (2) Aspiration pneumonia: Code(s): J69.0 - Pneumonitis due to inhalation of food and vomit Status: Acute (3) Alcohol withdrawal: Code(s): F10.939 - Alcohol use, unspecified with withdrawal, unspecified Status: Acute (4) Transaminitis: Code(s): R74.01 - Elevation of levels of liver transaminase levels Status: Acute (5) Alcohol abuse: Code(s): F10.10 - Alcohol abuse, uncomplicated Status: Acute Plan This is a pleasant 33-year-old male with history of polysubstance abuse including abuse of fentanyl and alcohol who presented to the emergency department via EMS for evaluation after an unintentional overdose. He snorted fentanyl not long prior to arrival and according to a friend he was ?going in and out of it? and became less and less responsive. She administered 4 mg Narcan intranasally and he came too. She reports that he began vomiting almost immediately while still supine. EMS was summoned and on their arrival he was alert and oriented x4. Enroute to the hospital he was given haloperidol 5 mg and ondansetron 4 mg for the vomiting with some improvement. he complained of feeling rotten with body aches, mild shortness of breath, anxiety, and tremors. He last had a drink of alcohol at about 10:00 on 03/30/2024. He can usually go about 8 to 10 hours between having drinks of alcohol before he has signs and symptoms of alcohol withdrawal. He has never had an alcohol withdrawal seizure but admits he has never stopped drinking for very long. Regarding his substance abuse, he has had periods of sobriety and was on Suboxone previously. He denies hallucinations, chest pain, cough, abdominal pain, diarrhea, and dysuria. In the ED: He was afebrile on arrival to the emergency department with stable blood pressures. He has been tachycardic and tachypneic since arrival to the hospital. Labs are significant for a WBC count of 6.1, platelet 141, BUN 9, creatinine 0.60, total bili 1.4, AST 496, ALT 385, alkaline phosphatase 175. Urine drug screen was positive for opioids and cannabinoids. Chest x-ray shows segmental right basilar atelectasis/consolidation, possible aspiration. He was given a dose of azithromycin, ceftriaxone, and metronidazole and is being admitted in this setting for close monitoring and IV antibiotics for possible aspiration pneumonia. Accidental fentanyl overdose Aspiration pneumonia Elevated LFTs negative hepatitis panel Chronic alcohol abuse Alcohol withdrawal [facility] protocol Possible opiate withdrawal add clonidine. If increases we can start buprenorphine if agreeable. Subjective Date/time seen: 03/31/24 14:21 Interval history: No overnight events. Still feeling shaky. Was nauseated. Family at bedside. Discussed with nursing staff. Review of Systems Review of Systems: All systems reviewed & are unremarkable except as noted in HPI and below Exam Narrative: General: Moderately ill-appearing gentleman the semi-Holbrook position in bed. Not in acute distress mildly tremulous HEENT: Normocephalic, atraumatic. PERRL, EOMI. Mild scleral icterus. Conjunctiva injected. Tacky mucous membranes. Neck: Supple. Respiratory: Respirations are nonlabored. Currently on 3 L nasal cannula. Coarse lung sounds bilaterally. Cardiovascular: Regular rate and rhythm with normal S1-S2. Gastrointestinal: Abdomen is soft, nontender, and nondistended with positive bowel sounds. Skin: Warm and moist Extremities: No cyanosis, clubbing, or edema. Radial and pedal pulses intact. Neurological: Alert and oriented. Cranial nerves 2-12 are grossly intact. Speech is clear. Fine tremors in the hands. Psychiatric: Pleasant and cooperative with appropriate mood. He is a bit anxious. Objective Data Vi
[2024-03-31] MEDS: cloNIDine HCL 0.1 MG TABLET PO ×2 (16:19→19:56)
[2024-03-31] MEDS: AZITHROMYCIN 500 MG/NS 250 ML 500 MG/250 ML BAG 250 MG IVPB (19:21)
--- NOTE | 2024-03-31 22:09 | PC.NURSE ---
Patient notified of risks of leaving AMA. Dr. Meyer notified, oil house attendant, and charge nurse made aware. New order to send prescription of Ceftin 500my PO q12h for 10 days. Patient signed AMA form.
--- NOTE | 2024-04-01 16:48 | PM.DS ---
DS: Admitting Diagnosis Discharge Date 03/31/24 Admitting Diagnosis Fentanyl overdose DS: Discharge Diagnosis Discharge Diagnosis (1) Accidental fentanyl overdose: Code(s): T40.411A - Poisoning by fentanyl or fentanyl analogs, accidental (unintentional), initial encounter Status: Acute (2) Aspiration pneumonia: Code(s): J69.0 - Pneumonitis due to inhalation of food and vomit Status: Acute (3) Alcohol withdrawal: Code(s): F10.939 - Alcohol use, unspecified with withdrawal, unspecified Status: Acute (4) Transaminitis: Code(s): R74.01 - Elevation of levels of liver transaminase levels Status: Acute (5) Alcohol abuse: Code(s): F10.10 - Alcohol abuse, uncomplicated Status: Acute DS: Summary Hospital Course Hospital Course: This is a pleasant 33-year-old male with history of polysubstance abuse including abuse of fentanyl and alcohol who presented to the emergency department via EMS for evaluation after an unintentional overdose. He snorted fentanyl not long prior to arrival and according to a friend he was ?going in and out of it? and became less and less responsive. She administered 4 mg Narcan intranasally and he came too. She reports that he began vomiting almost immediately while still supine. EMS was summoned and on their arrival he was alert and oriented x4. Enroute to the hospital he was given haloperidol 5 mg and ondansetron 4 mg for the vomiting with some improvement. he complained of feeling rotten with body aches, mild shortness of breath, anxiety, and tremors. He last had a drink of alcohol at about 10:00 on 03/30/2024. He can usually go about 8 to 10 hours between having drinks of alcohol before he has signs and symptoms of alcohol withdrawal. He has never had an alcohol withdrawal seizure but admits he has never stopped drinking for very long. Regarding his substance abuse, he has had periods of sobriety and was on Suboxone previously. He denies hallucinations, chest pain, cough, abdominal pain, diarrhea, and dysuria. In the ED: He was afebrile on arrival to the emergency department with stable blood pressures. He has been tachycardic and tachypneic since arrival to the hospital. Labs are significant for a WBC count of 6.1, platelet 141, BUN 9, creatinine 0.60, total bili 1.4, AST 496, ALT 385, alkaline phosphatase 175. Urine drug screen was positive for opioids and cannabinoids. Chest x-ray shows segmental right basilar atelectasis/consolidation, possible aspiration. He was given a dose of azithromycin, ceftriaxone, and metronidazole and is being admitted in this setting for close monitoring and IV antibiotics for possible aspiration pneumonia. Accidental fentanyl overdose Aspiration pneumonia Elevated LFTs negative hepatitis panel Chronic alcohol abuse Alcohol withdrawal [facility] protocol Possible opiate withdrawal add clonidine. If increases we can start buprenorphine if agreeable. While inpatient patient chose to leave the hospital against medical advise. He was given a script of antibiotic for his aspiration pneumonia. Time Spent with Patient Time attestation: Total time spent providing and/or coordinating discharge services: Exam Narrative: General: Moderately ill-appearing gentleman the semi-Holbrook position in bed. Not in acute distress mildly tremulous HEENT: Normocephalic, atraumatic. PERRL, EOMI. Mild scleral icterus. Conjunctiva injected. Tacky mucous membranes. Neck: Supple. Respiratory: Respirations are nonlabored. Currently on 3 L nasal cannula. Coarse lung sounds bilaterally. Cardiovascular: Regular rate and rhythm with normal S1-S2. Gastrointestinal: Abdomen is soft, nontender, and nondistended with positive bowel sounds. Skin: Warm and moist Extremities: No cyanosis, clubbing, or edema. Radial and pedal pulses intact. Neurological: Alert and oriented. Cranial nerves 2-12 are grossly intact. Speech is clear. Fine tremors in the hands. P
== END 2024-03-31 22:00 | disposition left against medical advice (07) | DRG 812 ==
LOC: ANHED 17:27 → ANH3MED 18:16
PROVIDERS: Physician Assistant; Admitting Provider Internal Medicine; Emergency Provider Emergency Medicine; Visit Provider Internal Medicine
DX: T40.411A Poisoning by fentanyl or fentanyl analogs, accidental (unintentional), initial encounter (principal); J69.0 Pneumonitis due to inhalation of food and vomit; F10.139 Alcohol abuse with withdrawal, unspecified; F19.10 Other psychoactive substance abuse, uncomplicated; Z72.0 Tobacco use
CPT/HCPCS: 36415; 71045; 80053; 80307; 81001; 83735; 85025; 85027; 85055; 93005; 94640; 96361; 96365; 96367; 96374; 96375; 96376; 99285; A9270; G0378; G0379; J0456; J0696; J1836; J2060; J7030

== ENCOUNTER 2024-07-21 16:00 | Emergency (ER) | payer SELFPAY ==
--- NOTE | ~2024-07-21 | CT_ITS ---
EXAMINATION: CTA chest PE abdomen pel DATE: 07/21/2024 20:55 INDICATION: Shortness of breath. Chest pain. TECHNIQUE: Computed tomography angiography (CTA) of the chest was performed with 100 mL Omnipaque-350 intravenous contrast timed to evaluate the pulmonary arteries. Coronal maximum intensity projection 3D-reconstructions were created by the technologist. Computed tomography (CT) of the abdomen and pelv is was performed with intravenous contrast. Automated exposure control and iterative reconstruction t echnique were employed. The dose-length product was 1450.71 mGy-cm. COMPARISON: CT abdomen and pelvis 05/08/2022 FINDINGS: CTA chest: There is no pneumonia or pleural effusion. The heart size is normal. No pericardial effusi on. There is no pulmonary embolus. There is mild bilateral gynecomastia. There is mild thoracic spond ylosis. CT abdomen and pelvis: There is diffuse hepatic steatosis. The gallbladder is distended. The common d uct is mildly dilated to 8 mm. The spleen, pancreas, adrenal glands, and kidneys are normal. There ar e no dilated loops of bowel. The appendix is normal. There is mild periportal lymphadenopathy. There is no free intraperitoneal fluid. There is mild lumbar spondylosis. IMPRESSION: 1. No pulmonary embolus. Sensitivity is moderately decreased by motion artifact. 2. Gallbladder distention, which likely secondary to fasting. Correlate with physical exam to exclude acute cholecystitis. 3. Mildly dilated common duct, stable from 05/08/22. 4. Diffuse hepatic steatosis. 5. Mild periportal lymphadenopathy, likely reactive. Reviewed, dictated and finalized at location A. [employer] OUTSIDE SALES MANAGER IMPRESSION: 1. No pulmonary embolus. Sensitivity is moderately decreased by motion artifact . 2. Gallbladder distention, which likely secondary to fasting. Correlate with ph ysical exam to exclude acute cholecystitis. 3. Mildly dilated common duct, stable from 05/08/22. 4. Diffuse hepatic steatosis. 5. Mild periportal lymphadenopathy, likely reactive.
--- NOTE | ~2024-07-21 | XR_ITS ---
EXAMINATION: XR chest 2V DATE: 07/21/2024 16:39 INDICATION: Shortness of breath. TECHNIQUE: Frontal and lateral views of the chest were obtained. COMPARISON: Chest single view 03/30/24, CT abdomen and pelvis 05/08/2022 FINDINGS: There is no pneumonia, pleural effusion, or pneumothorax. The heart size is normal. IMPRESSION: 1. No acute cardiopulmonary disease. Reviewed, dictated and finalized at location A. [employer]
--- NOTE | 2024-07-21 16:03 | ECG_ITS ---
Test Date: 2024-07-21 16:11:42 Measurements Intervals [place] Rate: 102 P: 46 FL: 148 QRS: 13 QRSD: 90 T: 12 QT: 365 QTc: 476 Interpretive Statements SINUS TACHYCARDIA MODERATE VOLTAGE CRITERIA FOR LVH, CONSIDER NORMAL VARIANT [MEETS CRITERIA IN ONE OF: R(aVL), S(V1), R(V5), R(V5/V6)+S(V1)] ABNORMAL RHYTHM ECG Compared to ECG 03/30/2024 19:51:42 Sinus rhythm no longer present Electronically Signed On 07-21-2024 21:11:50 [employer] by Liliana Clark M.D.
--- NOTE | 2024-07-21 16:22 | ED_ITS ---
HPI - General Adult General Chief complaint: Unspecified <Radhalula Ferro APRN - Last Filed: 07/21/24 19:26> Stated complaint: MULT C/O,CHEST TIGHTNESS X1D <Radha Ferro APRN - Last Filed: 07/21/24 19:26> Time Seen by Provider: 07/21/24 16:15 <Radha Ferro APRN - Last Filed: 07/21/24 19:26> Focused HPI: Pt is a 34-year-old male who presents to the ER with multiple complaints. He endorses bilateral shoulder pain, hand numbness, tight biceps, bilateral calf pain, shortness of breath, chest tightness, neck pain, left flank pain, and itchy palms. He reports his symptoms started approximately 15-16 hours ago and he has been unable to sleep. Patient reports he started drinking alcohol around 12:00 p.m. today. He reports he has cut back from drinking a 5th to one and half pts of Tequila a day. Patient also endorses recreational opiate use. He denies abdominal pain, urinary symptoms, back pain. GENERAL: Ill-appearing, well-nourished, and in mild distress. HEAD: Normocephalic, atraumatic. CHEST: Clear to auscultation. ?No respiratory distress. HEART: Tachycardia and regular rhythm.? NEURO: ?Alert and oriented x3. Intoxicated at the time of exam. Patient screened in triage and initial orders placed.? ?Additional care and disposition to be based upon?diagnostic testing and treatment. <Radha VanceMariana Ferro APRN - Last Filed: 07/21/24 19:26> Focused HPI: Pt is a 34-year-old male who presents to the ER with multiple complaints. He endorses bilateral shoulder pain, hand numbness, tight biceps, bilateral calf pain, shortness of breath, chest tightness, neck pain, left flank pain, and itchy palms. He reports his symptoms started approximately 15-16 hours ago and he has been unable to sleep. Patient reports he started drinking alcohol around 12:00 p.m. today. He reports he has cut back from drinking a 5th to one and half pts of Tequila a day. Patient also endorses recreational opiate use. He denies abdominal pain, urinary symptoms, back pain. GENERAL: Ill-appearing, well-nourished, and in mild distress. HEAD: Normocephalic, atraumatic. CHEST: Clear to auscultation. ?No respiratory distress. HEART: Tachycardia and regular rhythm.? NEURO: ?Alert and oriented x3. Intoxicated at the time of exam. Patient screened in triage and initial orders placed.? ?Additional care and disposition to be based upon?diagnostic testing and treatment. <JACQUELINE Escobar Last Filed: 07/22/24 00:52> Source: patient <JACQUELINE Escobar Last Filed: 07/22/24 00:52> Mode of arrival: ambulatory <JACQUELINE Escobar Last Filed: 07/22/24 00:52> Limitations: no limitations <JACQUELINE Escobar Last Filed: 07/22/24 00:52> History of Present Illness HPI narrative: Agree with above HPI. Reports daily alcohol use for the last 12 years. Last drink around noon. Does have history of withdrawal symptoms. Denies history of withdrawal seizures. Reports chest pain is what brought him to the ED stay. Reports left-sided chest pain radiating through to his back and down his left arm over the last 24 hours. Reports diffuse abdominal pain and bloating, recent nausea, lack of appetite. Does have history of pancreatitis. Denies history of cirrhosis. Patient admits to mixing opioids with alcohol. States he used fentanyl and heroin today. <JACQUELINE Escobar Last Filed: 07/22/24 00:52> Related Data Allergies/adverse reactions: Allergies Allergy/AdvReac Type Severity Reaction Status Date / Time No Known Allergies Allergy Mild Verified 07/21/24 16:02 <Radha Ferro APRN - Last Filed: 07/21/24 19:26> Review of Systems 2 Review of Systems: All systems reviewed & are unremarkable except as noted in HPI. <JACQUELINE Escobar Last Filed: 07/22/24 00:52> All systems reviewed & are unremarkable except as noted in HPI and below < JACQUELINE Escobar Last Filed: 07/22/24 00:52> [facility] Past Medical History Medical History: Medical History Polysubstance abuse Urine drug screen positive for opiates and cannabinoids. Alcohol abuse <Radha Ferro APRN - Last Filed: 07/21/24 19:26> Surgical History Surgical History: Surgical History No history of previous surgery <Radha Ferro APRN - Last Filed: 07/21/24 19:26> Family History Family History: Family History Father Heart attack Other Alcoholism <Radha Ferro APRN - Last Filed: 07/21/24 19:26> Social History Social History: Social History Social History: Surrogate medical decision maker: Jerry and Stacey Mondragon, parents. Code status: Full code. Smoking packs per day: 1 Smoking cigarettes per day: 20.0 Smoking status: Current every day smoker Tobacco type: cigarettes Additional smoking assessment comments: Social smoker, cigarettes and vape. Alcohol intake: current Alcohol use details: 5th of Tequila a day. Substance use: current Substance use type: marijuana, opiates and other Other substance usage details: 1 to 2 g fentanyl daily, marijuana Do You Feel Safe in your Home?: Yes Lack of Transportation: No Lack of Food: Never True Current Housing: I Have Housing Concerned About Future Housing: No Difficulty Paying Gas/Electric Bills: No Difficulty Paying for Meds: No Currently Unemployed: No Education: High School Diploma/GED Difficulty w/ Childcare or Family Care: No Additional living arrangements comments: Lives with a friend in [place]. Spiritual care concerns: No <Radha Ferro, ISELA - Last Filed: 07/21/24 19:26> Exam 2 Narrative: GENERAL: Mildly ill appearing, obese with BMI of 30.6, in mild acute distress. HEAD: Normocephalic, atraumatic. RESPIRATORY: Airway patent, respirations nonlabored. Clear to auscultation bilaterally, no rales, rhonchi, wheezing. No focal lung sounds. CARDIOVASCULAR: Borderline tachycardic with regular rhythm without murmurs, rubs, or gallops. ABDOMINAL: Soft, mild diffuse nonfocal tenderness, nondistended. Normoactive BS. MUSCULOSKELETAL: Moves all extremities. No gross deformities. No chest wall tenderness to palpation. No peripheral edema. No calf tenderness. SKIN: Warm, dry, normal color. NEURO: A&O X3. Speech clear. Cranial nerves II-XII grossly intact. Steady gait. Diffusely tremulous in face and upper extremities. No focal deficits. PSYCHIATRIC: Anxious. Normal interaction. <Hannah Mtz PA-C - Last Filed: 07/22/24 00:52> Course Vital Signs Vital signs: Vital Signs Temperature 98.2 F 07/21/24 16:24 Pulse Rate 92 07/21/24 16:24 Respiratory Rate 18 07/21/24 16:24 Blood Pressure 168/116 H 07/21/24 16:24 Pulse Oximetry 97 07/21/24 16:24 Oxygen Delivery Room Air 07/21/24 16:24 Temperature 98.2 F 07/21/24 16:24 Pulse Rate 81 07/22/24 00:30 Respiratory Rate 15 07/22/24 00:30 Blood Pressure 144/93 H 07/22/24 00:11 Pulse Oximetry 98 07/22/24 00:30 Oxygen Delivery Room Air 07/21/24 16:24 <Radha Ferro, CONSULTING TECHNICAL MANAGER - Last Filed: 07/21/24 19:26> Vital Signs Temperature 98.2 F 07/21/24 16:24 Pulse Rate 92 07/21/24 16:24 Respiratory Rate 18 07/21/24 16:24 Blood Pressure 168/116 H 07/21/24 16:24 Pulse Oximetry 97 07/21/24 16:24 Oxygen Delivery Room Air 07/21/24 16:24 Temperature 98.2 F 07/21/24 16:24 Pulse Rate 81 07/22/24 00:30 Respiratory Rate 15 07/22/24 00:30 Blood Pressure 144/93 H 07/22/24 00:11 Pulse Oximetry 98 07/22/24 00:30 Oxygen Delivery Room Air 07/21/24 16:24 <JACQUELINE Escobar Last Filed: 07/22/24 00:52> Medical Decision Making MDM Narrative Medical decision making narrative: Patient presented to ED with multiple complaints, left chest pain over the last 24 hours. Diffuse abdominal pain. Concern for alcohol withdrawal. Daily alcohol drinker up to a 5th per day. Reports history of withdrawal symptoms. Last drink around noon today. Alcohol level here 98. Does appear to be actively withdrawing. Initial CIWA score 14. CBC without leukocytosis. H&H is stable. Platelets 133. CMP with anion gap of 16. Stable kidney function. Blood sugar within normal range. Liver enzymes are abnormal, though this appears consistent with previous records/previous ED visits. Total bili 1.5. AST 620. ALT 553. Alk-phos 198. Lipase 447. Fluids ongoing. Urine drug screen is positive for opioids, cocaine, cannabinoids. Viral swabs are negative. EKG is sinus rhythm, no significant ST changes. Troponin negative x2. Low suspicion for ACS. Chest x-ray is clear. D-dimer is elevated to 0.85. CTA ordered. CTA of chest w/ abdomen/pelvis obtained: IMPRESSION: 1. No pulmonary embolus. Sensitivity is moderately decreased by motion artifact. 2. Gallbladder distention, which likely secondary to fasting. Correlate with physical exam to exclude acute cholecystitis. 3. Mildly dilated common duct, stable from 05/08/22. 4. Diffuse hepatic steatosis. 5. Mild periportal lymphadenopathy, likely reactive. Patient without any focal right upper quadrant tenderness on exam. He does admit to not eating over the last couple of days. Liver enzymes appear similarly elevated to previous records over the last couple of years. Likely alcoholic hepatitis. Low suspicion for cholecystics. Discussed lab and imaging findings at length with patient. Patient feels reassured by workup but is still feeling very anxious and tremulous. Repeat CIWA uptrending. Additional ativan given. Discussed my concern for progressing and more severe alcohol withdrawal. Recommended admission to hospital for further management of this. Patient does not wish to be admitted to the hospital at this time. States he would prefer to go home. States he is concerned if he gets admitted, he will not have his opioid withdrawal managed. I emphasized the importance of appropriate management of alcohol withdrawal as this could be potentially . Patient voiced understanding of risks, but is adamant about not staying in the hospital. Will have patient sign out against medical advice d/t concern for severe alcohol withdrawal. Will prescribe a course of Librium for home to attempt to manage withdrawal symptoms. I did discuss potentially giving loading dose of phenobarbital for alcohol withdrawal, however patient declined this. States he would prefer to use Librium. I discussed very strict return precautions should symptoms worsen. Advised he can return at any time to resume evaluation. Again emphasized risks of going home. Patient voiced understanding. He left the facility in stable condition. Ambulatory with a steady gait. Significant other with patient. <Hannah Mtz PA-C - Last Filed: 07/22/24 00:52> Medical Records Medical records reviewed: Yes I reviewed the external patient's medical records. <Hannah Mtz PA-C - Last Filed: 07/22/24 00:52> Vital Signs Vital Signs: Vital Signs Temperature 98.2 F 07/21/24 16:24 Pulse Rate 92 07/21/24 16:24 Respiratory Rate 18 07/21/24 16:24 Blood Pressure 168/116 H 07/21/24 16:24 Pulse Oximetry 97 07/21/24 16:24 Oxygen Delivery Room Air 07/21/24 16:24 Temperature 98.2 F 07/21/24 16:24 Pulse Rate 81 07/22/24 00:30 Respiratory Rate 15 07/22/24 00:30 Blood Pressure 144/93 H 07/22/24 00:11 Pulse Oximetry 98 07/22/24 00:30 Oxygen Delivery Room Air 07/21/24 16:24 <Radha Ferro, CONSULTING TECHNICAL MANAGER - Last Filed: 07/21/24 19:26> Vital Signs Temperature 98.2 F 07/21/24 16:24 Pulse Rate 92 07/21/24 16:24 Respiratory Rate 18 07/21/24 16:24 Blood Pressure 168/116 H 07/21/24 16:24 Pulse Oximetry 97 07/21/24 16:24 Oxygen Delivery Room Air 07/21/24 16:24 Temperature 98.2 F 07/21/24 16:24 Pulse Rate 81 07/22/24 00:30 Respiratory Rate 15 07/22/24 00:30 Blood Pressure 144/93 H 07/22/24 00:11 Pulse Oximetry 98 07/22/24 00:30 Oxygen Delivery Room Air 07/21/24 16:24 <Hannah Mtz PA-C - Last Filed: 07/22/24 00:52> Lab Data Lab results reviewed: Yes I reviewed the patient's lab results. <Hannah Mtz PA-C - Last Filed: 07/22/24 00:52> Result diagrams: 07/21/24 17:32 07/21/24 17:32 <Radha Ferro APRN - Last Filed: 07/21/24 19:26> Labs: Lab Results 07/21/24 07/21/24 07/21/24 Range/Units 17:31 17:32 20:00 WBC 3.7 L (4.5-10.0) K/mm3 RBC 4.64 (4.6-6.20) M/mm3 Hgb 15.6 (14.0-18.0) g/dL Hct 45.1 (42.0-52.0) % MCV 97.2 (80-100) fl MCH 33.6 (26-34) pg MCHC 34.6 (32-36) g/dl RDW 13.2 (11.5-14.5) % Plt Count 133 L (150-375) k/mm3 MPV 9.4 (7.4-10.4) fl Immature Gran % (Auto) Not Reportable Neut % (Auto) Not Reportable Lymph % (Auto) Not Reportable [place] % (Auto) Not Reportable Eos % (Auto) Not Reportable Baso % (Auto) Not Reportable Lymph # (Auto) Not Reportable [place] # (Auto) Not Reportable Eos # (Auto) Not Reportable Baso # (Auto) Not Reportable Abs Immat Gran (auto) Not Reportable Absolute Neuts (auto) Not Reportable Absolute Nucleated RBC Not Reportable Total Counted 100 Neutrophils % (Manual) 57 (46-73) % Band Neutrophils % 3 (0-6) % Lymphocytes % (Manual) 28.0 (18-44) % Monocytes % (Manual) 8 (3-9) % Eosinophils % (Manual) 2 (0-4) % Basophils % (Manual) 2 H (0-1) % Nucleated RBC % Not Reportable Abs Neuts (Manual) 2.22 (1.3-6.7) K/mm3 Abs Lymphs (Manual) 1.03 L (1.1-4.5) K/mm3 Abs Monocytes (Manual) 0.29 (0.1-0.90) K/mm3 Absolute Eos (Manual) 0.07 (0.02-0.50) K/mm3 Abs Basophils (Manual) 0.07 (0.0-0.1) K/mm3 Platelet Estimate Decreased (Adequate) % Immature Plt Fraction 4.5 (0.9-11.2) % Schistocytes None seen PT 13.7 (11.1-14.7) Seconds INR 1.0 APTT 32.0 (22.3-36.8) Seconds D-Dimer 0.85 H (<0.48) ug/mL Sodium 141 (137-145) mmol/L Potassium 3.6 (3.4-5.0) mmol/L Chloride 99 (98-107) mmol/L Carbon Dioxide 26 (22-30) mmol/L Anion Gap 16 H (4-12) mmol/L BUN 6 L (9-20) mg/dL Creatinine 0.51 L (0.7-1.3) mg/dL Estim Creat Clear Calc 195 ml/min Estimated GFR > 60 (59 - ) Glucose 117 H (65-110) mg/dL Calcium 9.3 (8.4-10.2) mg/dL Magnesium 2.1 (1.6-2.3) mg/dL Total Bilirubin 1.5 H (0.2-1.3) mg/dL AST 620 H (17-59) U/L ALT 553 H (6-50) U/L Alkaline Phosphatase 198 H (38-126) U/L Troponin I < 0.012 < 0.012 (0.000-0.034) ng/mL Total Protein 10.0 H (6.3-8.2) g/dL Albumin 4.8 (3.5-5.1) g/dL Lipase 447 H (23-300) U/L Urine Color Dark yellow (Yellow) Urine Appearance Clear (Clear) Urine pH 6.5 (5.0-9.0) Ur Specific [place] 1.014 (1.001-1.035) Urine Protein 1+ H (Negative) mg/dL Urine Glucose (UA) Negative (Negative) mg/dL Urine Ketones Negative (Negative) mg/dL Ur Blood (Man) Negative (Negative) Urine Nitrate Negative (Negative) Urine Bilirubin Negative (Negative) Urine Urobilinogen 1.0 (<2.0) mg/dL Leukocyte Esterase Rfl Negative (Negative) SANDY/UL Urine RBC 3-5 H (0-2) /hpf Urine WBC 0-5 (0-3) /hpf Ur Squamous Epith Cells None seen (Few) /hpf Urine Bacteria None seen /hpf Urine Casts 0-2 Urine Opiates Screen Positive A (Negative) Urine Methadone Screen Negative (Negative) Ur Barbiturates Screen Negative (Negative) Ur Phencyclidine Scrn Negative (Negative) Ur Amphetamine Screen Negative (Negative) U Benzodiazepines Scrn Negative (Negative) Urine Cocaine Screen Positive A (Negative) U Cannabinoids Screen Positive A (Negative) Ethyl Alcohol 98 (<10) mg/dL Influenza A (RT-PCR) Negative (Negative) Influenza B (RT-PCR) Negative (Negative) RSV (RT-PCR) Negative (Negative) SARS-CoV-2 RNA (RT-PCR) Negative (Negative) <Radha Ferro, CONSULTING TECHNICAL MANAGER - Last Filed: 07/21/24 19:26> Lab Results 07/21/24 07/21/24 07/21/24 Range/Units 17:31 17:32 20:00 WBC 3.7 L (4.5-10.0) K/mm3 RBC 4.64 (4.6-6.20) M/mm3 Hgb 15.6 (14.0-18.0) g/dL Hct 45.1 (42.0-52.0) % MCV 97.2 (80-100) fl MCH 33.6 (26-34) pg MCHC 34.6 (32-36) g/dl RDW 13.2 (11.5-14.5) % Plt Count 133 L (150-375) k/mm3 MPV 9.4 (7.4-10.4) fl Immature Gran % (Auto) Not Reportable Neut % (Auto) Not Reportable Lymph % (Auto) Not Reportable [place] % (Auto) Not Reportable Eos % (Auto) Not Reportable Baso % (Auto) Not Reportable Lymph # (Auto) Not Reportable [place] # (Auto) Not Reportable Eos # (Auto) Not Reportable Baso # (Auto) Not Reportable Abs Immat Gran (auto) Not Reportable Absolute Neuts (auto) Not Reportable Absolute Nucleated RBC Not Reportable Total Counted 100 Neutrophils % (Manual) 57 (46-73) % Band Neutrophils % 3 (0-6) % Lymphocytes % (Manual) 28.0 (18-44) % Monocytes % (Manual) 8 (3-9) % Eosinophils % (Manual) 2 (0-4) % Basophils % (Manual) 2 H (0-1) % Nucleated RBC % Not Reportable Abs Neuts (Manual) 2.22 (1.3-6.7) K/mm3 Abs Lymphs (Manual) 1.03 L (1.1-4.5) K/mm3 Abs Monocytes (Manual) 0.29 (0.1-0.90) K/mm3 Absolute Eos (Manual) 0.07 (0.02-0.50) K/mm3 Abs Basophils (Manual) 0.07 (0.0-0.1) K/mm3 Platelet Estimate Decreased (Adequate) % Immature Plt Fraction 4.5 (0.9-11.2) % Schistocytes None seen PT 13.7 (11.1-14.7) Seconds INR 1.0 APTT 32.0 (22.3-36.8) Seconds D-Dimer 0.85 H (<0.48) ug/mL Sodium 141 (137-145) mmol/L Potassium 3.6 (3.4-5.0) mmol/L Chloride 99 (98-107) mmol/L Carbon Dioxide 26 (22-30) mmol/L Anion Gap 16 H (4-12) mmol/L BUN 6 L (9-20) mg/dL Creatinine 0.51 L (0.7-1.3) mg/dL Estim Creat Clear Calc 195 ml/min Estimated GFR > 60 (59 - ) Glucose 117 H (65-110) mg/dL Calcium 9.3 (8.4-10.2) mg/dL Magnesium 2.1 (1.6-2.3) mg/dL Total Bilirubin 1.5 H (0.2-1.3) mg/dL AST 620 H (17-59) U/L ALT 553 H (6-50) U/L Alkaline Phosphatase 198 H (38-126) U/L Troponin I < 0.012 < 0.012 (0.000-0.034) ng/mL Total Protein 10.0 H (6.3-8.2) g/dL Albumin 4.8 (3.5-5.1) g/dL Lipase 447 H (23-300) U/L Urine Color Dark yellow (Yellow) Urine Appearance Clear (Clear) Urine pH 6.5 (5.0-9.0) Ur Specific [place] 1.014 (1.001-1.035) Urine Protein 1+ H (Negative) mg/dL Urine Glucose (UA) Negative (Negative) mg/dL Urine Ketones Negative (Negative) mg/dL Ur Blood (Man) Negative (Negative) Urine Nitrate Negative (Negative) Urine Bilirubin Negative (Negative) Urine Urobilinogen 1.0 (<2.0) mg/dL Leukocyte Esterase Rfl Negative (Negative) SANDY/UL Urine RBC 3-5 H (0-2) /hpf Urine WBC 0-5 (0-3) /hpf Ur Squamous Epith Cells None seen (Few) /hpf Urine Bacteria None seen /hpf Urine Casts 0-2 Urine Opiates Screen Positive A (Negative) Urine Methadone Screen Negative (Negative) Ur Barbiturates Screen Negative (Negative) Ur Phencyclidine Scrn Negative (Negative) Ur Amphetamine Screen Negative (Negative) U Benzodiazepines Scrn Negative (Negative) Urine Cocaine Screen Positive A (Negative) U Cannabinoids Screen Positive A (Negative) Ethyl Alcohol 98 (<10) mg/dL Influenza A (RT-PCR) Negative (Negative) Influenza B (RT-PCR) Negative (Negative) RSV (RT-PCR) Negative (Negative) SARS-CoV-2 RNA (RT-PCR) Negative (Negative) <Hannah Mtz PA-C - Last Filed: 07/22/24 00:52> Imaging Data Attestation: I personally reviewed and interpreted this imaging study as follows: < Hannah Mtz PA-C - Last Filed: 07/22/24 00:52> Radiologist's impression: ITS Impressions Chest X-Ray 07/21/24 16:41 IMPRESSION: 1. No acute cardiopulmonary disease. Chest/Abdomen/Pelvis CTA 07/21/24 21:01 IMPRESSION: 1. No pulmonary embolus. Sensitivity is moderately decreased by motion artifact. 2. Gallbladder distention, which likely secondary to fasting. Correlate with physical exam to exclude acute cholecystitis. 3. Mildly dilated common duct, stable from 05/08/22. 4. Diffuse hepatic steatosis. 5. Mild periportal lymphadenopathy, likely reactive. <Hannah Mtz PA-C - Last Filed: 07/22/24 00:52> ECG Data EKG #1: Attestation: I personally reviewed and interpreted this ECG as follows: <Hannah Mtz PA-C - Last Filed: 07/22/24 00:52> ECG completion date: 07/21/24 <Hannah Mtz PA-C - Last Filed: 07/22/24 00:52> ECG completion time: 16:11 <JACQUELINE Escobar Last Filed: 07/22/24 00:52> EKG Interpretation: tachycardia (102), sinus rhythm and non-specific ST changes <JACQUELINE Escobar Last Filed: 07/22/24 00:52> Discharge Plan Discharge Clinical Impression: Alcohol abuse with withdrawal, Transaminitis, Polysubstance abuse, Atypical chest pain <Radha Ferro APRN - Last Filed: 07/21/24 19:26> Patient Disposition: Left Against Medical Advice <Radha Ferro APRN - Last Filed: 07/21/24 19:26> Condition: Guarded Prognosis <Radha Ferro APRN - Last Filed: 07/21/24 19:26> Instructions: Alcohol Withdrawal (ED), Polysubstance Use Disorder (ED), Transaminitis (ED) <Radha Ferro APRN - Last Filed: 07/21/24 19:26> Additional Instructions: Avoid further alcohol or drug use. Utilize Librium as needed for alcohol withdrawal symptoms. It was recommended you be admitted to the hospital for management of your alcohol withdrawal, however you declined this. Follow up with GI for further evaluation of your elevated liver enzymes. Return to the ED if you experience new or worsening symptoms, worsening chest pain, difficulty breathing, unable to keep down food or drink, or any other symptoms of concern. <Radha Ferro APRN - Last Filed: 07/21/24 19:26> Patient Language: Irish <Radha Ferro APRN - Last Filed: 07/21/24 19:26> Prescriptions: New chlordiazepoxide HCl 25 mg capsule 25 mg PO TID PRN (Reason: alcohol withdrawal) Qty: 15 0RF No Action cefuroxime axetil 250 mg Tablet 500 mg PO Q12HR 10 Days Qty: 40 0RF <Radha Ferro APRN - Last Filed: 07/21/24 19:26> Follow-up/Referrals: PHYSICIAN,MEDICARE SALES REPRESENTATIVE [Primary Care Provider] - Maxx Powell MD [Physician] - (GI) <Radha Ferro APRN - Last Filed: 07/21/24 19:26> Time of Disposition: 00:18 <Radha Ferro APRN - Last Filed: 07/21/24 19:26> 00:18 <Hannah Mtz PA-C - Last Filed: 07/22/24 00:52>
[2024-07-21 16:24] VITALS: BP 168/116; PULSE 92; RESP 18; TEMP 36.8; O2SAT 97
--- OUTSIDE RECORDS SUMMARY | 2024-07-21 16:36 | XMS_ITS | Clinical Summary ---
Author Organization [facility] Address [address] [place] [address]. [place], [place] [id number] [place] [id number] Care Team Providers Care Manager Application Name Role Phone Unavailable Primary Care Provider Unavailabl e Social History Tobacco Use Types Packs/Day Years Used Date Smoking Tobacco: Never Assessed Sex and Gender Information Value Date Recorded Sex Assigned at Not on file Legal Sex Male 5:48 PM CDT Gender Identity Not on file Sexual Orientation Not on file Plan of Treatment Health Maintenance Due Date Last Done Comments Annual Physical 1994 Hepatitis C 2009 DTaP, Tdap and Td Vaccines ( 1 - Tdap) 2010 Hepatitis B Vaccines (1 of 3 - 19+ 3-dose series) 2010 COVID-19 Vaccine (2023-2 5 season) 2024 Influenza Adult (#1) 2024 HPV Vaccines Aged Out No longer eligi ble based on patient's age to complete this topic Meningococcal B Vaccine Aged Out No l onger eligible based on patient's age to complete this topic Meningococcal Vaccine Aged Out No tab janae eligible based on patient's age to complete this topic Pneumococcal Vaccine: Pediat rics (0 to 5 Years) and At-Risk Patients (6 to 64 Years) Aged Out No longer eligible b ased on patient's age to complete this topic RSV Immunizations Under 20 Months Aged Out No longer eligible based on patient's age to complete this topic
[2024-07-21] MEDS: KETOROLAC 15 MG/ML VIAL (*BKC) IV PUSH (17:28)
[2024-07-21 17:42] LABS: Hematocrit 45.1 % (42.0-52.0); Hemoglobin 15.6 g/dL (14.0-18.0); Immature Platelet Fraction Pct 4.5 % (0.9-11.2); Mean Corpuscular HGB Conc 34.6 g/dl (32-36); Mean Corpuscular Hemoglobin 33.6 pg (26-34); Mean Corpuscular Volume 97.2 fl (80-100); Mean Platelet Volume 9.4 fl (7.4-10.4); Platelet Count Result 133 k/mm3 (150-375); Red Blood Count 4.64 M/mm3 (4.6-6.20); Red Cell Distribution Width 13.2 % (11.5-14.5); White Blood Count 3.7 K/mm3 (4.5-10.0)
[2024-07-21 17:47] LABS: Add Urine Microscopic? YES; Appearance Urine Clear (Clear); Bacteria Urine None Seen /hpf; Bilirubin Urine Negative (Negative); Blood Urine Negative (Negative); Color Urine Dark Yellow (Yellow); Glucose Urine UA Negative (Negative); Ketones Urine Negative (Negative); Leukocyte Esterase Ur Negative LEU/UL (Negative); Nitrate Urine Negative (Negative); Non Pathogenic Casts 0-2; Protein Urine 1+ mg/dL (Negative); Specific Grav Ur 1.014 (1.001-1.035); Squamous Epithelial Cell Urine None Seen /hpf (Few); WBC Urine 0-5 /hpf (0-3); pH Urine 6.5 (5.0-9.0)
[2024-07-21 17:50] LABS: Ethanol 98 mg/dL (<10)
[2024-07-21 17:51] LABS: Alanine Aminotransferase 553 U/L (6-50); Albumin Level 4.8 g/dL (3.5-5.1); Alkaline Phosphatase 198 U/L (38-126); Anion Gap 16 mmol/L (4-12); Aspartate Amino Transferase 620 U/L (17-59); Bilirubin,Total 1.5 mg/dL (0.2-1.3); Blood Urea Nitrogen 6 mg/dL (9-20); Calcium 9.3 mg/dL (8.4-10.2); Carbon Dioxide 26 mmol/L (22-30); Chloride 99 mmol/L (98-107); Estimated CRCL calculation 195 ml/min; Estimated Glomerular Filt Rate > 60; Glucose 117 mg/dL (65-110); Lipase 447 U/L (23-300); Potassium 3.6 mmol/L (3.4-5.0); Sodium 141 mmol/L (137-145)
[2024-07-21 17:54] LABS: Prothrombin Time 13.7 Seconds (11.1-14.7)
[2024-07-21 17:59] LABS: Amphetamine Screen Urine Negative (Negative); Barbiturate Screen Urine Negative (Negative); Benzodiazepines Screen Urine Negative (Negative); Cannabinoid Screen Urine Positive (Negative); Cocaine Screen Urine Positive (Negative); Methadone Screen Urine Negative (Negative); Opiate Screen Urine Positive (Negative); Phencyclidine Screen Urine Negative (Negative)
[2024-07-21 18:07] LABS: Troponin I < 0.012 ng/mL (0.000-0.034)
[2024-07-21 18:18] LABS: Band Neutrophils Percent 3 % (0-6); Basophils Absolute Manual 0.07 K/mm3 (0.0-0.1); Basophils Percent Manual 2 % (0-1); Eosinophils Absolute Manual 0.07 K/mm3 (0.02-0.50); Eosinophils Percent Manual 2 % (0-4); Lymphocytes Absolute Manual 1.03 K/mm3 (1.1-4.5); Monocytes Absolute Manual 0.29 K/mm3 (0.1-0.90); Monocytes Percent Manual 8 % (3-9); Neutrophils Absolute Manual 2.22 K/mm3 (1.3-6.7); Neutrophils Percent Manual 57 % (46-73); Platelet Estimate Decreased (Adequate); Schistocytes None Seen; Total Cells Counted 100
[2024-07-21 18:19] LABS: Influenza A QL RT-PCR Negative (Negative); Influenza B QL RT-PCR Negative (Negative); RSV RNA, RT-PCR Negative (Negative); SARS-CoV-2 RNA PCR Negative (Negative)
[2024-07-21 18:35] LABS: D Dimer 0.85 ug/mL (<0.48)
--- NOTE | 2024-07-21 19:53 | ECG_ITS ---
Test Date: 2024-07-21 19:58:26 Measurements Intervals [place] Rate: 77 P: 14 MT: 146 QRS: 21 QRSD: 94 T: 14 QT: 409 QTc: 464 Interpretive Statements SINUS RHYTHM MINIMAL VOLTAGE CRITERIA FOR LVH, CONSIDER NORMAL VARIANT [MEETS CRITERIA IN ONE OF: R(aVL), S(V1), R(V5), R(V5/V6)+S(V1)] Compared to ECG 07/21/2024 16:11:42 Sinus tachycardia no longer present Electronically Signed On 07-21-2024 21:07:53 BILL HIKER by Liliana Clark M.D.
--- NOTE | 2024-07-21 20:05 | PC.NURSE ---
Patient just verbalized to this RN that he drinks a lot and had his last drink at noon today and thinks he is in alcohol withdrawl. This RN spoke with provider. Proper precautions into place such as seizure pads and patient hooked up to youth nutritional monitor. Patient A&Ox4 and stable at this time
--- OUTSIDE RECORDS SUMMARY | 2024-07-21 20:05 | XMS_ITS | Clinical Summary ---
Author Organization [facility] Address [address] [place] [address]. [place], [place] [id number] [place] [id number] Care Team Providers Care Idea Worker Name Role Phone Unavailable Primary Care Provider [...]
[2024-07-21 20:17] VITALS: BP 181/108; PULSE 94; RESP 16; O2SAT 100
[2024-07-21] MEDS: SODIUM CHLORIDE 0.9% IV 1,000 ML 999 ML IV CONT ×2 (20:17→20:18)
[2024-07-21] MEDS: THIAMINE HCL 200 MG/2 ML VIAL 100 MG IV PUSH (20:18)
[2024-07-21] MEDS: LORazepam INJ (*CRX) 2 MG/ML VIAL 1 MG IV PUSH ×2 (20:29→22:40)
[2024-07-21 20:30] LABS: Magnesium 2.1 mg/dL (1.6-2.3)
[2024-07-21 20:32] LABS: Troponin I < 0.012 ng/mL (0.000-0.034)
--- NOTE | 2024-07-21 21:47 | PC.NURSE ---
Patient requesting use of urinal
[2024-07-21 22:39] VITALS: BP 150/98; PULSE 106; RESP 21; O2SAT 100
--- NOTE | 2024-07-21 22:44 | PC.NURSE ---
Provider aware of patient's increasing CIWA score. Orders for Zofran given.
[2024-07-21] MEDS: ONDANSETRON INJ 4 MG/2 ML VIAL IV PUSH (22:48)
[2024-07-22] MEDS: LORazepam INJ (*CRX) 2 MG/ML VIAL IV PUSH (00:04)
[2024-07-22 00:11] VITALS: BP 144/93; PULSE 96; RESP 14; O2SAT 96
[2024-07-22 00:30] VITALS: PULSE 81; RESP 15; O2SAT 98
== END 2024-07-22 00:30 | disposition left against medical advice (07) ==
PROVIDERS: Registered Nurse; Emergency Provider Physician Assistant
DX: F10.139 Alcohol abuse with withdrawal, unspecified (principal); R07.89 Other chest pain; R74.01 Elevation of levels of liver transaminase levels; F19.10 Other psychoactive substance abuse, uncomplicated; F17.210 Nicotine dependence, cigarettes, uncomplicated; Y90.4 Blood alcohol level of 80-99 mg/100 ml; Z20.822 Contact with and (suspected) exposure to COVID-19
CPT/HCPCS: 36415; 71046; 71275; 74177; 80053; 80307; 81001; 82077; 83690; 83735; 84484; 85025; 85055; 85380; 85610; 85730; 87637; 93005; 96361; 96374; 96375; 96376; 99284; J1885; J2060; J2405; J3411; J7030; Q9967

== ENCOUNTER 2024-09-05 20:32 | Emergency (ER) | payer MEDICAID, SELFPAY ==
--- OUTSIDE RECORDS SUMMARY | 2024-09-05 20:34 | XMS_ITS | Clinical Summary ---
Author Organization [facility] Address [facility] [place] [address] Care Team Providers Care Human Resources Coordinator Name Role Phone Unavailable Primary Care Provider [...]
[2024-09-05 20:35] VITALS: BP 157/92; PULSE 97; RESP 18; TEMP 37.1; O2SAT 99
[2024-09-05 20:51] LABS: Basophils Absolute Auto 0.1 K/mm3 (0.0-0.1); Basophils Percent Auto 0.7 % (0.2-1.2); Hemoglobin 15.9 g/dL (14.0-18.0); Immature Granulocyte Absolute 0.02 K/mm3 (0.00-0.031); Immature Granulocyte Percent A 0.3 % (0-0.5); Lymphocytes Absolute Auto 1.22 K/mm3 (0.9-3.2); Lymphocytes Percent Auto 18.2 % (18.3-44.2); Mean Corpuscular HGB Conc 34.6 g/dl (32-36); Mean Corpuscular Hemoglobin 33.5 pg (26-34); Mean Platelet Volume 9.4 fl (7.4-10.4); Monocytes Absolute Auto 0.5 K/mm3 (0.1-0.6); Neutrophils Percent Auto 73.8 % (45.5-73.1); Platelet Count Result 188 k/mm3 (150-375); Red Blood Count 4.74 M/mm3 (4.6-6.20); Red Cell Distribution Width 12.7 % (11.5-14.5); White Blood Count 6.7 K/mm3 (4.5-10.0)
[2024-09-05 21:02] LABS: Ethanol 204 mg/dL (<10)
[2024-09-05 21:03] LABS: Alanine Aminotransferase 267 U/L (6-50); Albumin Level 5.2 g/dL (3.5-5.1); Alkaline Phosphatase 170 U/L (38-126); Anion Gap 17 mmol/L (4-12); Aspartate Amino Transferase 253 U/L (17-59); Bilirubin,Total 1.5 mg/dL (0.2-1.3); Calcium 9.9 mg/dL (8.4-10.2); Carbon Dioxide 27 mmol/L (22-30); Chloride 103 mmol/L (98-107); Estimated CRCL calculation 139 ml/min; Estimated Glomerular Filt Rate > 60; Glucose 126 mg/dL (65-110); Lipase 384 U/L (23-300); Potassium 3.5 mmol/L (3.4-5.0); Sodium 147 mmol/L (137-145)
[2024-09-05 21:42] LABS: Blood Urea Nitrogen < 2 mg/dL (9-20)
[2024-09-05 22:13] VITALS: BP 152/102; PULSE 106; RESP 28; O2SAT 100
--- NOTE | 2024-09-05 22:34 | PC.NURSE ---
2210 patient A&Ox4, speech slowed. Pt shaking, anxious, diaphoretic. Pt placed on full monitor, VS as charted. Seizure pads applied. Call light in reach with family at bedside.
[2024-09-05 22:42] VITALS: PULSE 87
[2024-09-05 22:44] LABS: Add Urine Microscopic? NO; Appearance Urine Clear (Clear); Bilirubin Urine Negative (Negative); Blood Urine Negative (Negative); Color Urine Yellow (Yellow); Glucose Urine UA Negative (Negative); Ketones Urine Negative (Negative); Leukocyte Esterase Ur Negative LEU/UL (Negative); Nitrate Urine Negative (Negative); Protein Urine Negative (Negative); Specific Grav Ur 1.005 (1.001-1.035); pH Urine 7.5 (5.0-9.0)
--- OUTSIDE RECORDS SUMMARY | 2024-09-05 23:28 | XMS_ITS | Clinical Summary ---
Author Organization [facility] Address [facility] [place] [address] Care Team Providers Care Supervisor Pre Wave Name Role Phone Unavailable Primary Care Provider [...]
--- NOTE | 2024-09-05 23:55 | PC.NURSE ---
patient removed IV access. iv catheter intact upon removal. pt is ambulatory with a steady unassisted gait.
--- NOTE | 2024-09-06 00:31 | PC.NURSE ---
patient removed vital equipment and stated he was leaving. pt was seen ambulating with a steady unassisted gait with family member towards the exit of the ed.
== END 2024-09-06 01:11 | disposition left against medical advice (07) ==
LOC: ANHED 23:27
PROVIDERS: Student in an Organized Health Care Education/Training Program; Emergency Provider Emergency Medicine
DX: R10.9 Unspecified abdominal pain (principal)
CPT/HCPCS: 36415; 80053; 81003; 82077; 83690; 85025; 99199; 99283